=== PATIENT | male | born 1995 | race Caucasian/White ===

== ENCOUNTER 2016-11-14 09:16 | Emergency (ER) | payer OTHER ==
[2016-11-14 09:53] LABS: ALBUMIN 4.1 g/dL (3.5-5.0); ALKALINE PHOSPHATASE 70 U/L (38-126); ALT 39 U/L (21-72); AST 29 U/L (17-59); BILIRUBIN, DIRECT 0.2 mg/dL (0.0-0.4); BILIRUBIN, TOTAL 0.5 mg/dL (0.2-1.3); BLOOD UREA NITROGEN 11 mg/dL (9-20); CALCIUM 9.6 mg/dL (8.4-10.2); CHLORIDE 104 mmol/L (98-107); EST GLOMERULAR FILTRATION RATE > 60 mL/min; GLUCOSE 89 mg/dL (70-100); LIPASE 36 U/L (23-300); MAGNESIUM 1.9 mg/dL (1.6-2.3); SODIUM 142 mmol/L (137-145); TOTAL PROTEIN 7.3 g/dL (6.3-8.2)
[2016-11-14 09:56] LABS: BASOPHILS 0.6 % (0.0-2.0); EOSINOPHILS 4.6 % (0.0-6.0); EOSINOPHILS# 0.3 X 10^3uL (0.0-0.4); HEMATOCRIT 47.3 % (42.0-54.0); LYMPHOCYTES 19.8 % (20.0-40.0); LYMPHOCYTES# 1.2 X 10^3uL (0.8-3.8); MEAN CORPUS. HGB CONCENTRATION 33.9 g/dL (32.0-36.0); MEAN CORPUSCULAR HEMOGLOBIN 30.7 pg (29.0-35.0); MEAN PLATELET VOLUME 8.3 fL (7.4-10.4); MONOCYTES 10.6 % (2.0-10.0); MONOCYTES# 0.6 X 10^3uL (0.2-1.0); NEUTROPHILS 64.4 % (54.0-75.0); NEUTROPHILS# 3.9 X 10^3uL (2.6-6.7); PLATELET COUNT 165 X 10^3uL (130-440); RED BLOOD COUNT 5.22 X 10^6uL (4.20-6.10); RED CELL DISTRIBUTION WIDTH 11.9 % (11.5-14.5); WHITE BLOOD COUNT 6.1 X 10^3uL (3.9-10.7)
[2016-11-14] MEDS ORDERED: FAMOTIDINE IN SALINE, ISO-OSM 20 MG/50 ML PIGGYBACK IV ONE (10:00)
--- NOTE | 2016-11-14 11:18 | ER NURSING DOCUMENTATION ---
Nurse's Notes [facility] Name:Rodrigo Jenkins Age:21 yrs Sex:Male :1995 Arrival Date:11/14/2016 Time:09:16 Bed1 Private MD: Diagnosis:Gastritis Presentation: 11/14 09:24 Acuity: LEISA 3 sc1 09:37 Presenting complaint: Patient states: Abdominal pain that started Friday, crampy in sc1 nature. Began having diarrhea on Friday. Imodium hasn't helped. Transition of care: [facility]. Notified ED Physician of patient's arrival and CC Karson Henry notified. 09:37 Method Of Arrival: Private Vehicle az1 Triage Assessment: 09:40 General: Appears in no apparent distress, well developed, well nourished, well groomed, az1 Behavior is cooperative, pleasant. Pain: Complains of pain in abdomen. GI: Abdomen is non- distended Bowel sounds present X 4 quads. Reports cramping, diarrhea, Denies nausea, vomiting. Historical: - Allergies: No known drug Allergies; - Home Meds: 1. gabapentin oral - PMHx: Cocaine/ETOH Addiction; - PSHx: None; - Ebola Screening: : Patient negative for fever greater than or equal to 101.5 degrees Fahrenheit, and additional compatible Ebola Virus Disease symptoms. Patient denies exposure to infectious person. Patient denies travel to an Ebola-affected area in the 21 days before illness onset. No symptoms or risks identified at this time. . - Immunization history: Flu Vaccine < 1 year. - Social history: Smoking status: Patient states was never smoker of tobacco. Patient/guardian denies using alcohol, street drugs, IV drugs, marijuana Pt. states he has been at [facility] for two months.. Screenin:43 Infectious Disease Risk None. Abuse screen: Denies threats or abuse. Nutritional az1 screening: No deficits noted. Vital Signs: 09:41 BP 140 / 72; Pulse 87; Resp 18; Temp 98.5; Pulse Ox 94% on R/A; az1 ED Course: 09:19 Patient arrived in ED. ama 09:20 Shai Ty MD is Attending Physician. 09:24 Triage completed. sc1 09:30 Inserted peripheral IV: 20 gauge in right antecubital area and blood collected. sc1 09:37 Isabel Guzman, RN is Primary Nurse. az1 09:[address] Ty notified. Arm band placed on Bed in low position Call sc1 Light in Reach Gowned HOB Elevated. Labs ordered per protocol. Drawn by ED staff. 11:16 Discontinued IV intact, bleeding controlled, pressure dressing applied, No sc1 redness/swelling at site. Administered Medications: 09:35 Drug: NS 0.9% 1000 ml; Route: IV; Rate: bolus; Site: right antecubital; Delivery: sc1 [place] Tubing; 11:16 Follow up: IV Status: Completed infusion; IV Intake: 1000ml az1 09:52 Drug: Pepcid 20 mg; Route: IVPB; Site: right antecubital; Delivery: IVPB Tubing; az1 11:16 Follow up: IV Status: Completed infusion; IV Intake: 100ml az1 11:15 Not Given (Patient Refused): Zofran 4 mg IVP once over 2 mins az1 Point of Care Testing: Urine Dip: 09:28 pH: 7.0; ; Specific [place]: 1.015; Ketones: Negative; Glucose: Negative; Protein: sc1 Negative; Leukocytes: Negative; Nitrite: Negative ; Blood: Negative; Bilirubin: Negative ; Urobilinogen: Normal Intake: 11:16 IV: 1000ml; Total: 1000ml. az1 11:16 IV: 100ml; Total: 1100ml. az1 Outcome: 11:04 Discharge ordered by . grant 11:17 Discharged to [place] [id number] 11:17 Condition: improved 11:17 Discharge instructions given to patient, Instructed on discharge instructions, follow up and referral plans. medication usage, Demonstrated understanding of instructions, medications. 11:18 Patient left the ED. az1 Signatures: Richelle Fountain RN RN st Campbell, Sandy, RN RN sc1 Shai Ty MD MD jm Averdick, Andrew, Reg Reg ama
--- NOTE | 2016-11-14 11:18 | ER PHYSICIAN DOCUMENTATION ---
Physician Documentation [facility] Name:Rodrigo Jenkins Age:21 yrs Sex:Male :1995 Arrival Date:11/14/2016 Time:09:16 Bed1 Private MD: Shai Isaac Disposition: 11/14/16 11:04 Discharged to Home/Self Care. Impression: Gastritis. - Condition is Good. - Discharge Instructions: GASTRITIS (Adult). - Medical Reconciliation form form. - Follow up: Private Physician; When: As needed; Reason: Continuance of care. - Problem is new. - Symptoms have improved. - Notes: Buy omprazole 20mg and use it daily for a week HPI: 11/14 10:39 This 21 yrs old Male presents to ER via Private Vehicle with complaints of jm Abdominal Pain. 10:39 The patient presents with abdominal pain in the epigastric area, that is diffuse. jm Onset: The symptoms/episode began/occurred 3 day(s) ago. The symptoms do not radiate. Associated signs and symptoms: Pertinent positives: dysuria, Pertinent negatives: vomiting. The symptoms are described as crampy. Modifying factors: the symptoms are aggravated by nothing. Severity of pain: in the emergency department the pain has improved markedly. The patient has not experienced similar symptoms in the past. Pt's been having intermittent abd cramps while at [facility]. Pt states this has been occurring for a few days. . Historical: - Allergies: No known drug Allergies; - Home Meds: 1. gabapentin oral - PMHx: Cocaine/ETOH Addiction; - PSHx: None; - Ebola Screening: : Patient negative for fever greater than or equal to 101.5 degrees Fahrenheit, and additional compatible Ebola Virus Disease symptoms. Patient denies exposure to infectious person. Patient denies travel to an Ebola-affected area in the 21 days before illness onset. No symptoms or risks identified at this time. . - Immunization history: Flu Vaccine < 1 year. - Social history: Smoking status: Patient states was never smoker of tobacco. Patient/guardian denies using alcohol, street drugs, IV drugs, marijuana Pt. states he has been at [facility] for two months.. ROS: 10:47 Constitutional: Negative for fatigue, fever. jm 10:47 Abdomen/GI: Positive for diarrhea, abdominal cramps. 10:47 All other systems are negative. Exam: 10:48 Constitutional: The patient appears alert, awake. 10:48 Cardiovascular: Rate: normal, Rhythm: regular. 10:48 Respiratory: Respirations: normal, Breath sounds: are normal. 10:48 Abdomen/GI: Bowel sounds: normal, Palpation: abdomen is soft and non-tender. 10:48 Neuro: Mentation: is normal, Memory: is normal. Vital Signs: 09:41 BP 140 / 72; Pulse 87; Resp 18; Temp 98.5; Pulse Ox 94% on R/A; sc1 MDM: 09:20 Patient medically screened. 12:01 Differential diagnosis: gastritis, non-specific abd pain, Peritonitis. Data reviewed: vital signs, nurses notes, lab test result(s), and as a result, I will discharge patient. Counseling: I had a detailed discussion with the patient and/or guardian regarding: the historical points, exam findings, and any diagnostic results supporting the discharge/admit diagnosis, lab results, the need for outpatient follow up, with the patient's primary care provider. Medication response: The patient's symptoms have improved, pepcid. 13:16 ED course: Pt better after pepcid. I feel this is gastritis, so pt told to get some omeprazole and use it for at least a week while his stomach heals. . 11/14 09:54 Order name: BASIC METABOLIC PANEL; Complete Time: 10: [facility] 11/14 09:54 Order name: MAGNESIUM; Complete Time: 10: [facility] 11/14 09:54 Order name: HEPATIC PANEL; Complete Time: 10: [facility] 11/14 09:54 Order name: LIPASE; Complete Time: 10: [facility] 11/14 09:57 Order name: CBC AUTO DIF, MDIF/RMOR IF IND; Complete Time: 10: [facility] 11/14 09:20 Order name: NPO; Complete Time: 09:53 Dispensed Medications: 09:35 Drug: NS 0.9% 1000 ml; Route: IV; Rate: bolus; Site: right antecubital; Delivery: sc1 [place] Tubing; 11:16 Follow up: IV Status: Completed infusion; IV Intake: 1000ml sc1 09:52 Drug: Pepcid 20 mg; Route: IVPB; Site: right antecubital; Delivery: IVPB Tubing; sc1 11:16 Follow up: IV Status: Completed infusion; IV Intake: 100ml sc1 11:15 Not Given (Patient Refused): Zofran 4 mg IVP once over 2 mins mt1 Point of Care Testing: Urine Dip: 09:28 pH: 7.0; ; Specific [place]: 1.015; Ketones: Negative; Glucose: Negative; Protein: sc1 Negative; Leukocytes: Negative; Nitrite: Negative ; Blood: Negative; Bilirubin: Negative ; Urobilinogen: Normal Signatures: Isabel Guzman RN RN mt1 Shai Ty MD MD
== END 2016-11-14 11:18 | disposition home or self-care (01) ==
LOC: ER 09:16
DX: K29.70 Gastritis, unspecified, without bleeding (principal); R30.0 Dysuria
CPT/HCPCS: 80048; 80076; 83690; 83735; 85025; 96365; 99284